=== PATIENT | female | born 1960 | race Caucasian/White ===

== ENCOUNTER 2023-06-28 10:32 | Emergency (ER) | payer MEDICARE, SELFPAY ==
--- NOTE | ~2023-06-28 | XR_ITS ---
EXAMINATION: XR chest 2V 06/28/2023 11:41 INDICATION: Cough PROCEDURE: 2 view chest COMPARISON: No prior studies for comparison. FINDINGS: The lungs are clear. The cardiomediastinal silhouette is within normal limits. There are no pleural effusions. There is no pneumothorax suspected. There are spinal stimulator leads overlyi ng the thoracic spine. There are mild wedge compression deformities of the lower thoracic spine and u pper lumbar spine, likely chronic. IMPRESSION: 1: NO ACUTE CARDIOPULMONARY DISEASE. Reviewed, dictated and finalized at location A. PLASTERER
--- NOTE | 2023-06-28 10:47 | ED.URI ---
HPI - URI/Sore Throat General Chief Complaint: Upper Respiratory Infection Stated Complaint: SINUS CONGESTION Time Seen by Provider: 06/28/23 10:34 Source: patient Mode of arrival: ambulatory Limitations: no limitations History of Present Illness HPI Narrative: Julianna is a 63-year-old female patient presenting to the clinic today with complaints of sinus congestion, cough, and increase in shortness of breath. She reports she wears home oxygen at all times. States that she is more short of breath upon exertion and has had a productive cough with yellow phlegm. Also reporting blowing out some yellow nasal discharge. History of pneumonia MD elicited complaint: sore throat and nasal congestion Related Data Home Medications Medication Instructions Recorded Confirmed albuterol sulfate 90 mcg/actuation inhalation 06/28/23 aerosol inhaler aspirin 81 mg tablet,delayed 81 mg PO DAILY 06/28/23 06/28/23 release (Adult Low Dose Aspirin) baclofen 10 mg tablet mg 06/28/23 budesonide 160 mcg-glycopyr 9 inh inhalation 06/28/23 mcg-formot 4.8 mcg/actuation HFA inhaler (Breztri Aerosphere) buspirone 15 mg tablet mg 06/28/23 celecoxib 200 mg capsule mg 06/28/23 chlorthalidone 25 mg tablet mg 06/28/23 cyanocobalamin (vitamin B-12) 1,000 mcg PO DAILY 06/28/23 06/28/23 1,000 mcg tablet (Vitamin B-12) hydrocodone 5 mg-acetaminophen 325 tablet 06/28/23 mg tablet lisinopril 20 mg tablet mg 06/28/23 morphine 15 mg tablet,extended mg PO 06/28/23 release morphine 30 mg tablet,extended mg PO 06/28/23 release multivit with minerals-iron 18 tablet PO 06/28/23 mg-folic ac 400 mcg-vit K 25 mcg tablet (Adults Multivitamin) olanzapine 5 mg tablet mg 06/28/23 rosuvastatin 40 mg tablet 40 mg PO DAILY 06/28/23 06/28/23 Allergies Allergy/AdvReac Type Severity Reaction Status Date / Time No Known Allergies Allergy Verified 06/28/23 11:11 Review of Systems Review of Systems: Pertinent positives per HPI. Patient denies any fever, chills, rash, headache, visual changes, dizziness, cough, shortness of breath, chest pain, palpitations, nausea, vomiting, diarrhea, constipation, abdominal pain, or any urinary issues. [facility] Comments At the time of my signature, I reviewed and agree with the nursing past medical, surgical, social, and family history. There is no relevant family history pertinent to the patient complaint. Exam Narrative: General: Well-developed, obese, chronically ill-appearing Head: Normocephalic, atraumatic Eyes: Pupils equally round and reactive to light bilaterally, EOM intact, sclera and conjunctive clear, no discharge, lids normal Ears: TMs intact and congested, ear canals clear, no drainage, grossly hearing normal. Nose: Nares patent, yellow nasal discharge, moderate inflammation, maxilla sinus tenderness. Mouth: Oral pharynx without lesions or masses, good dentition, MMM. Neck: Supple, trachea midline, no enlargement of anterior or posterior cervical nodes, no thyroid masses or goiter palpable. Cardio: Regular rate and rhythm, s1 and s2 normal, no murmur appreciated. Resp: Diminished breath sounds with crackles in the left lower base, no rhonchi, wheezing or rubs Course Course Emergency Course: Portions of this record may have been created with voice recognition software. Level of Care: Express Care Visit Vital Signs Vital signs: Vital signs reviewed MDM - URI/Sore Throat MDM Narrative Medical decision making narrative: At the time of visit patient is resting comfortably on the exam table. Patient appears to be nontoxic. Diagnostics: Chest x-ray was performed and was negative for any sign of pneumonia. Plan: supportive measures were discussed with the patient and they voiced understanding discharge instructions and agrees to treatment plan. Return precautions reviewed Differential Diagnosis Differential diagnosis: Likely upper respiratory infection, otitis med
[2023-06-28 11:14] VITALS: BP 147/66; PULSE 82; RESP 22; TEMP 37.2; O2SAT 93
== END 2023-06-28 12:11 | disposition home or self-care (01) ==
PROVIDERS: Emergency Provider Nurse Practitioner Family; PCP Internal Medicine Infectious Disease
DX: J01.90 Acute sinusitis, unspecified (principal); E78.00 Pure hypercholesterolemia, unspecified; I10 Essential (primary) hypertension; J44.9 Chronic obstructive pulmonary disease, unspecified; E11.9 Type 2 diabetes mellitus without complications; Z79.82 Long term (current) use of aspirin
CPT/HCPCS: 71046; 99213; G0463

== ENCOUNTER 2024-07-08 10:39 | Outpatient (CLI) | payer MEDICARE, SELFPAY ==
--- OUTSIDE RECORDS SUMMARY | 2024-07-08 11:38 | XMS_ITS | CONTINUITY OF CARE DOCUMENT ---
Author Name sourav benjamin Address Unknown Organization [facility] Address [address] [place] [address] Phone [phone] Care Team Providers Care Eyeglass Fitter Name Role Phone Nirmal NATHAN, Riri Unavailable TRICIA KURTZ MD Unavailable TRICIA KURTZ MD Unavailable [phone] PROBLEMS Condition Status Date Provider Notes Shortness of breath, nl rega stress 07/22 active Jordan Nacht Venous insufficiency active Jordan Nacht Obesity active Franco C Willam Hx of tobacco abuse (quit in 2013) active Franco C [place] COPD active Franco C Willam Hyperlipidemia active Franco C Willam HTN active Franco C [place] DM, type 2 active Franco C Willam Cardiology examination completed 8 - Jordan Sierra ENCOUNTERS Date Type Provider Location Encounter Diag nosis - In-person encounter Office Visit Riri Kinney MD [place] [facility] - In-person encounter Office Visit Riri Kinney MD [place] [facility] Cardiology examinationVenous insufficiencyShortness of breath, nl rega stress 07/22 - In-person encounter Office Visit Riri Kinney MD [place] [facility] DM, type 2HTNHyperlipidemiaCOPDHx of tobacco abuse (quit in 2013)ObesityVenous insufficiencyShortness of breath, nl rega stress 07/22 VITAL SIGNS Date Observation Value Provider Body Mass Index (Ratio) 39.28 kg/m2 Rickey Kinney MD blood pressure, diastolic 79 mm[Hg] Ca therine Bridger blood pressure, systolic 125 mm[Hg] Cat herine Gonzales pulse rate 102 /min Sandra Bridger oxygen saturation, oximetry 93 % Sandra Gonzales respiratory rate E&M 16 /min Catheri ne Bridger weight E&M 306 [lb_av] Sandra Gonzales blood pressure, cuff size regular Ca therine Gonzales height E&M 74 [in_i] Sandra Bridger Body Mass Index (Ratio) 40.70 kg/m2 Rickey Kinney MD pulse rate 104 /min Maria Isabel Campbel l oxygen saturation, oximetry 93 % Maria Isabel Alas blood pressure, cuff size regular Cy nthia Alas blood pressure, diastolic 86 mm[Hg] Ja cob Nacht blood pressure, systolic 140 mm[Hg] Onofre ob Nacht respiratory rate E&M 18 /min Maria Isabel Alas weight E&M 317 [lb_av] Maria Isabel [place] l height E&M 74 [in_i] Maria Isabel [place] l Body Mass Index (Ratio) 39.54 kg/m2 Rickey Kinney MD blood pressure, resting Yes Brit rob Block pulse rate 106 /min Deirdre Block blood pressure, diastolic 98 mm[Hg] Br ittany Block blood pressure, systolic 158 mm[Hg] Lashay ttany Block oxygen saturation, oximetry 93 % Deirdre Block height E&M 74 [in_i] Deirdre Block weight E&M 308 [lb_av] Deirdre Kaur respiratory rate E&M 16 /min Ya Kaur ALLERGIES No Known Drug Allergies HISTORY OF MEDICATION USE Medication Status Instructions Dates Provider Indications Com ments chlorthalidone 25 mg tablet active TAKE 1 TABLET BY MOUTH EVERY DAY ret chlorthalidone 25 mg tablet completed Take 1 tablet by mouth once a day - Fitz MEDICAL COMPRESSION STOCKINGS active knee high, bilateral, with 20-30mmHg of compression Jordan Sierra chlorthalidone 25 mg tablet completed 1 tablet once a day - Jordan Sierra magnesium oxide 400 mg magnesium tablet active 1 tablet as needed Christine Samuel One-A-Day Women's 50 Plus 400-20 mcg tablet active Christine Samuel Adult Aspirin Regimen 81 mg tablet,delayed release (DR/EC) active 1 tablet once a day Christine Samuel Ventolin HFA 90 mcg/actuation HFA aerosol inhaler active 4-6 puff once a day Christine Samuel #90, 84 days supply, Filled 01/02/2020 Symbicort 160-4.5 mcg/actuation HFA aerosol inhaler active Inhale 2 puff by mouth twice a day as directed Christine Samuel #10.2, 30 days supply, Prescribed by TRICIA KURTZ, Filled 07/03/2020 Spiriva Respimat 2.5 mcg/actuation mist active Inhale 2 puff by mouth once a day Christine Samuel #4, 30 days supply, Prescribed by TRICIA KURTZ, Filled 06/16/2020 rosuvastatin 40 mg tablet active 1 tablet once a day Christine Samuel #90, 90 days supply, Filled 06/26/2020 Oysco 500/D 500 mg-5 mcg (200 unit) tablet active Take 1 tablet by mouth twice a day Christine Samuel #60, 30 days supply, Prescribed by FRANCO KLEIN, Filled 06/13/2019 olanzapine 5 mg tablet active 1 tablet once a day Christine Samuel #90, 90 days supply, Filled 06/05/2020 morphine 30 mg tablet extended release active 1 tablet twice a day Christine Samuel #60, 30 days supply, Filled 06/17/2020 lisinopril 20 mg tablet active 1 tablet once a day Christine Samuel #90, 90 days supply, Filled 06/26/2020 hydrocodone-aceta minophen 10-325 mg tablet active Take 1 tablet by mouth three times a day as needed Christine Samuel #90, 30 days supply, Prescribed by RIC PUGH, Filled 06/18/2020 celecoxib 200 mg capsule active 1 tablet twice a day Christine Samuel #180, 90 days supply, Filled 05/23/2020 albuterol sulfate 90 mcg/actuation HFA aerosol inhaler active Inhale 2 puff by mouth every four to six hours as needed Christine Samuel #90, 83 days supply, Prescribed by TRICIA KURTZ, Filled 06/05/2020 SOCIAL HISTORY Date Observation Value Provider smoking, year quit 2013 Sandra Gonzales cigarette use yes Sandra Bridger smoking status Former smoker Sandra Ot is social history reviewed E&M revi ewed - no changes required Riri Kinney MD social history E&M S moking History: Anel painting is a former smoker. Jordan Sierra social history reviewed E&M revi ewed - no changes required Jordan Sierra smoking, year quit 2013 Maria Isabel hills cigarette use yes Maria Isabel rivera smoking status Former smoker Maria Isabel fink number of grandchildren Riri Kinney MD M isabela Quarles social history E&M S moking History: Anel painting is a former smoker. Franco Quarles social history reviewed E&M revi ewed - no changes required Franco Quarles alcohol use, average drinks per day <1 Deirdre Block alcohol use yes Deirdre Block smoking, year quit 2013 Deirdre Block cigarette use yes Deirdre Block smoking status Former smoker Deirdre brown FAMILY HISTORY Family Member Condition Mother Family History Unkno wn Father Family History of Co ronary Artery Disease: INSURANCE PROVIDERS Payer name Policy type / Coverage type [place] [employer] party ID AARP MEDICARE ADVANTAGE ([employer] P[employer]) Other [id number] ADVANCE DIRECTIVES Name Date DISCUSSED - NO DECISION MADE TREATMENT PLAN Date Name Performer [id number],S, Riri Kinney MD [id number],S, Riri Kinney MD [id number],B, Riri Kinney MD [id number],S, Riri Kinney MD [id number],W, Riri Kinney MD [id number],W, Riri Kinney MD Cardiology Riri Kinney MD Cardiology Riri Kinney MD Cardiology Riri Kinney MD Cardiology Riri Kinney MD Cardiology Riri Kinney MD Cardiology Riri Kinney MD Cardiology follow up Riri toth MD Cardiology follow up Jordan Sierra Cardiology follow up Jordan Sierra Cardiology follow up Jordan Sierra Cardiology follow up Jordan Sierra Cardiology follow up Jordan Sierra Cardiology Franco C [place] Cardiology Franco C [place] Cardiology Franco C Willam Cardiology Franco C Willam Cardiology Franco C [place] Cardiology Franco C [place] Date Name Venous Doppler Bilat eral LE - Reflux Stress Regadenoson Complete Echo HISTORY OF PROCEDURES Procedure Date Procedure Name Provider Procedure Notes S tatus EKG Riri Kinney MD completed
--- OUTSIDE RECORDS SUMMARY | 2024-07-08 11:38 | XMS_ITS | Data Portability ---
Author Organization [place] - [email or web address], Main Office Address [address] [place] [address] Care Team Providers Care Assembler Body Name Role Phone AARONMAK ISABELRafael Primary Care Provider Assessment Encounter Date Assessment Date Assessment LastModified by Organization Details LastModified Time 01/28/2023 01/28/2023 Assessment: Nicotine smoke: 2 ppd [id number] = 80 pack years Severe COPD Severe persistent asthma Pulm hypertension CSA from hydrocodone and morphine Severe OSAHS, AHI = 33 Plan: The following were reviewed and explained to the patient: Lab data 10/09/[address] 12/27/19 emphysema, pulm hypertension Chest CT 07/04/22 left lung and RLL pneumonia, hiatal hernia, cardiomegaly PFT 06/10/17 FEV1 1.12 L (34%), (+) BD response PFT 09/12/20 FEV1 1.25 L (38%), (+) BD response PFT 10/31/21 FEV1 1.13 L (37%) PFT 10/30/22 FEV1 0.91 L (28%) [facility] split sleep study 10/03/22 AHI = 33, REM AHI = 70, ResMed medium AirFit F30 full face mask @ 11-13 cmH2O + 4 Lpm O2 bleed in The [place] Preventive Services Task Force (USPSTF) recommends annual screening for lung cancer with low-dose computed tomography (LDCT) in: 1. adults aged 50 to 80 years who have a 20 pack-year smoking history and 2. current smokers or smokers who have quit within the past 15 years. Screening should be discontinued once a person has not smoked for 15 years or develops a health problem that substantially limits life expectancy or the ability or willingness to have curative lung surgery. LDCT one week before return. Advised to continue not to smoke. She is on nicotine replacement therapy and is down from 40 to 10 gums per day. In the future, we may consider biologics if her asthmatic component remains uncontrolled as her eosinophils from 10/09/20 = 190/uL. Continue Ventolin HFA as needed. Continue Breztri 160/9/4.8 mcg 2 puffs BID per patient request. Gargle after use. She is could not get into the [employer] patient assistance program. The patient does not know how to accurately administer the inhalers. Today, the patient was shown how to take these medications. The proper technique for delivering these medications was instructed. The patient expressed a clear understanding and demonstrated back how to use these medications. Without the proper technique, the patient will not reap the benefits of these medications as the contents will not reach the lower airways as intended to be. Pulmonary rehabilitation may be included in the management of patients with chronic obstructive pulmonary disease (COPD). For respiratory diseases different from COPD, there have been no formal statements regarding patient selection. Pulmonary rehabilitation consists of assessment, exercise, education, and emotional support. It covers the goals of rehabilitation, the techniques of breathing, the necessity of nicotine cessation, the strategies to deal with panic attacks, the rationale of pulmonary medications, and the importance of nutrition. As the patient learns to live with her pulmonary condition through exercise and education, the patient will regain confidence with her abilities and feel improvement in her overall quality of life. The patient's FEV1 is 28 %. The patient is enrolled in pulmonary rehabilitation but declined participation. General concepts of pulmonary rehabilitation were explained. Adherence to therapy is advocated. Nonadherence may lead to treatment failure, further progression of the condition, and other complications. Hospitals admissions are often the result of individuals not taking prescription medications accurately. Alternatively, greater adherence to medication regimens have shown to lower rates of hospitalization and decrease total medical costs in patients with chronic medical conditions. PAP compliance downloaded and interpreted x 20 minutes. Data reviewed and explained to the patient. Average apnea/hypopnea index (AHI) is 2.7. Patient used PAP > 4 hours 99% of the time. PAP is set at 11-13 cmH2O. PAP will be reset at 12-13 cmH2O. Oxygen supplementation: 4 Lpm Patient is benefiting from PAP therapy. Encouraged patient to maintain PAP use more than 70% of the time. Statement of PAP use and benefits will be sent to the home care store. Educated the patient on problems and solutions associated with positive airway pressure (PAP) use. Difficulty tolerating pressure, mask leaks, intolerance of interface, nasal congestion, claustrophobic response, dry mouth, and unintentional mask removal during sleep were covered. Provided the patient with a list of local home care stores where positive airway pressure (PAP) units, accoutrement, and services are available. Home care store selection is based on patient's insurance carrier. Patient will setup an appointment with [facility] for supplies and pressure adjustments. A major predictor of success with use of PAP is follow-up with both the respiratory supplier and the treating physician. The respiratory supplier optimally will follow-up within two weeks after starting use while the treating physician optimally will follow-up within 90 days after starting therapy to assess adherence and effectiveness of treatment. The download results can show the treating physician information about adherence to treatment, residual AHI while on treatment and presence of large mask leakage. This information is especially helpful if the patient has residual sleepiness despite treatment. General information on sleep disordered breathing, evaluation of sleep disordered breathing, treatment with PAP therapy, and living with PAP therapy were covered. We discussed with the patient the impact of weight on: Sleep disordered breathing Hypertension Cardiomegaly Hiatal hernia Low back pain OA We discussed with the patient the benefit of PAP therapy on: Sleep disordered breathing Pulmonary hypertension Hypertension Cardiomegaly Educated the patient on sleep hygiene measures. Relaxing rituals to rest easy, understanding foods with positive and negative impact on sleep, creating a peaceful sleep environment, timing of exercise, using herbal sleep aids, and practicing sleep-friendly meditation were covered. To determine how much sleep is needed, the patient will assess where she falls on the spectrum, examine what lifestyle factors such as work schedules and stress are affecting the quality and quantity of sleep. In general, adults need 7-9 hours of sleep. Educated the patient regarding foods that promote sleep. These include but are not limited to cherries, bananas, toast, oatmeal, and warm milk. Educated the patient regarding foods and drinks to avoid before bedtime. These include but are not limited to aged cheese, chocolate, spicy foods, tomato-based sauces, soy, ginseng tea and processed meat. Advocated influenza vaccination annually and pneumonia vaccination in 2023. Advocated weight loss through diet and exercise. Patient's ideal body weight according to height and gender is up to 185 lbs. Encouraged patient to adjust caloric intake to maintain/achieve ideal body weight, emphasizing on fruits, vegetables, whole grains, and fat-free or low-fat products. These include lean meats, poultry, fish, beans, eggs, and nuts and foods that are low in saturated fats, trans-fats, cholesterol, salt (sodium), and glycemic index. Stressed the importance of regular exercise up to the patient's capacity limits. In this case, we recommend regular (4 x a week or more) walking or other light activity. Patient to monitor BP daily and bring records to PCP for further management. Follow-up: 9 months, October 2023 Not available 01/28/2023 12:00:35 04/20/2023 04/20/2023 Assessment: Nicotine smoke: 2 ppd [id number] = 80 pack years Severe COPD Severe persistent asthma Pulm hypertension CSA from hydrocodone and morphine Severe OSAHS, AHI = 33 Plan: The following were reviewed and explained to the patient: Lab data 10/09/[address] 12/27/19 emphysema, pulm hypertension Chest CT 07/04/22 left lung and RLL pneumonia, hiatal hernia, cardiomegaly PFT 06/10/17 FEV1 1.12 L (34%), (+) BD response PFT 09/12/20 FEV1 1.25 L (38%), (+) BD response PFT 10/31/21 FEV1 1.13 L (37%) PFT 10/30/22 FEV1 0.91 L (28%) [facility] split sleep study 10/03/22 AHI = 33, REM AHI = 70, ResMed medium AirFit F30 full face mask @ 11-13 cmH2O + 4 Lpm O2 bleed in The [place] Preventive Services Task Force (USPSTF) recommends annual screening for lung cancer with low-dose computed tomography (LDCT) in: 1. adults aged 50 to 80 years who have a 20 pack-year smoking history and 2. current smokers or smokers who have quit within the past 15 years. Screening should be discontinued once a person has not smoked for 15 years or develops a health problem that substantially limits life expectancy or the ability or willingness to have curative lung surgery. LDCT and PFT one week before return. Advised to continue not to smoke. She is on nicotine replacement therapy and is down from 40 to 10 gums per day. Sputum gm stain and culture if purulent. Continue Ventolin HFA as needed. Continue Breztri 160/9/4.8 mcg 2 puffs BID per patient request. Gargle after use. She is out of Breztri and is in the donut hole. She will enroll in the [place] patient assistance program. The patient does not know how to accurately administer the inhalers. Today, the patient was shown how to take these medications. The proper technique for delivering these medications was instructed. The patient expressed a clear understanding and demonstrated back how to use these medications. Without the proper technique, the patient will not reap the benefits of these medications as the contents will not reach the lower airways as intended to be. Pulmonary rehabilitation may be included in the management of patients with chronic obstructive pulmonary disease (COPD). For respiratory diseases different from COPD, there have been no formal statements regarding patient selection. Pulmonary rehabilitation consists of assessment, exercise, education, and emotional support. It covers the goals of rehabilitation, the techniques of breathing, the necessity of nicotine cessation, the strategies to deal with panic attacks, the rationale of pulmonary medications, and the importance of nutrition. As the patient learns to live with her pulmonary condition through exercise and education, the patient will regain confidence with her abilities and feel improvement in her overall quality of life. The patient's FEV1 is 28 %. The patient is enrolled in pulmonary rehabilitation but declined participation. General concepts of pulmonary rehabilitation were explained. Adherence to therapy is advocated. Nonadherence may lead to treatment failure, further progression of the condition, and other complications. Hospitals admissions are often the result of individuals not taking prescription medications accurately. Alternatively, greater adherence to medication regimens have shown to lower rates of hospitalization and decrease total medical costs in patients with chronic medical conditions. PAP compliance downloaded and interpreted x 20 minutes. Data reviewed and explained to the patient. Average apnea/hypopnea index (AHI) is 1.3. Patient used PAP > 4 hours 96% of the time. PAP is set at 12-13 cmH2O. PAP will be reset at 12-13 cmH2O. Oxygen supplementation: 4 Lpm Patient is benefiting from PAP therapy. Encouraged patient to maintain PAP use more than 70% of the time. Statement of PAP use and benefits will be sent to the home care store. Educated the patient on problems and solutions associated with positive airway pressure (PAP) use. Difficulty tolerating pressure, mask leaks, intolerance of interface, nasal congestion, claustrophobic response, dry mouth, and unintentional mask removal during sleep were covered. Provided the patient with a list of local home care stores where positive airway pressure (PAP) units, accoutrement, and services are available. Home care store selection is based on patient's insurance carrier. Patient will setup an appointment with [facility] for supplies and pressure adjustments. A major predictor of success with use of PAP is follow-up with both the respiratory supplier and the treating physician. The respiratory supplier optimally will follow-up within two weeks after starting use while the treating physician optimally will follow-up within 90 days after starting therapy to assess adherence and effectiveness of treatment. The download results can show the treating physician information about adherence to treatment, residual AHI while on treatment and presence of large mask leakage. This information is especially helpful if the patient has residual sleepiness despite treatment. General information on sleep disordered breathing, evaluation of sleep disordered breathing, treatment with PAP therapy, and living with PAP therapy were covered. We discussed with the patient the impact of weight on: Sleep disordered breathing Hypertension Cardiomegaly Hiatal hernia Low back pain OA We discussed with the patient the benefit of PAP therapy on: Sleep disordered breathing Pulmonary hypertension Hypertension Cardiomegaly Educated the patient on sleep hygiene measures. Relaxing rituals to rest easy, understanding foods with positive and negative impact on sleep, creating a peaceful sleep environment, timing of exercise, using herbal sleep aids, and practicing sleep-friendly meditation were covered. To determine how much sleep is needed, the patient will assess where she falls on the spectrum, examine what lifestyle factors such as work schedules and stress are affecting the quality and quantity of sleep. In general, adults need 7-9 hours of sleep. Educated the patient regarding foods that promote sleep. These include but are not limited to cherries, bananas, toast, oatmeal, and warm milk. Educated the patient regarding foods and drinks to avoid before bedtime. These include but are not limited to aged cheese, chocolate, spicy foods, tomato-based sauces, soy, ginseng tea and processed meat. Advocated influenza vaccination annually and pneumonia vaccination in 2023. Advocated weight loss through diet and exercise. Patient's ideal body weight according to height and gender is up to 185 lbs. Encouraged patient to adjust caloric intake to maintain/achieve ideal body weight, emphasizing on fruits, vegetables, whole grains, and fat-free or low-fat products. These include lean meats, poultry, fish, beans, eggs, and nuts and foods that are low in saturated fats, trans-fats, cholesterol, salt (sodium), and glycemic index. Stressed the importance of regular exercise up to the patient's capacity limits. In this case, we recommend regular (4 x a week or more) walking or other light activity. Patient to monitor BP daily and bring records to PCP for further management. Follow-up: 3 months, July 2023 Not available 07/07/2023 18:14:14 07/15/2023 07/15/2023 Assessment: Nicotine smoke: 2 ppd [id number] = 80 pack years Severe COPD Severe persistent asthma Pulm hypertension CSA from hydrocodone and morphine Severe OSAHS, AHI = 33 Plan: The following were reviewed and explained to the patient: Lab data 10/09/[address] 12/27/19 emphysema, pulm hypertension Chest CT 07/04/22 left lung and RLL pneumonia, hiatal hernia, cardiomegaly Chest CT 07/07/23 emphysema, no nodule PFT 06/10/17 FEV1 1.12 L (34%), (+) BD response PFT 09/12/20 FEV1 1.25 L (38%), (+) BD response PFT 10/31/21 FEV1 1.13 L (37%) PFT 10/30/22 FEV1 0.91 L (28%) PFT 07/07/23 FEV1 1.31 L (45%) [facility] split sleep study 10/03/22 AHI = 33, REM AHI = 70, ResMed medium AirFit F30 full face mask @ 11-13 cmH2O + 4 Lpm O2 bleed in The [employer] recommends annual screening for lung cancer with low-dose computed tomography (LDCT) for people aged 50 to 80 years old who smoke or formerly smoked and have a 20-year or greater pack-year history. Screening is no longer discontinued even when a person has not smoked for 15 years. Advised to continue not to smoke. She is on nicotine replacement therapy, 15 gums per day, the most. Sputum gm stain and culture if purulent. Continue Ventolin HFA as needed. Continue Breztri 160/9/4.8 mcg 2 puffs BID. Gargle after use. The patient does not know how to accurately administer the inhalers. Today, the patient was shown how to take these medications. The proper technique for delivering these medications was instructed. The patient expressed a clear understanding and demonstrated back how to use these medications. Without the proper technique, the patient will not reap the benefits of these medications as the contents will not reach the lower airways as intended to be. Pulmonary rehabilitation may be included in the management of patients with chronic obstructive pulmonary disease (COPD). For respiratory diseases different from COPD, there have been no formal statements regarding patient selection. Pulmonary rehabilitation consists of assessment, exercise, education, and emotional support. It covers the goals of rehabilitation, the techniques of breathing, the necessity of nicotine cessation, the strategies to deal with panic attacks, the rationale of pulmonary medications, and the importance of nutrition. As the patient learns to live with her pulmonary condition through exercise and education, the patient will regain confidence with her abilities and feel improvement in her overall quality of life. The patient's FEV1 is 45%. The patient is enrolled in pulmonary rehabilitation but declined participation. General concepts of pulmonary rehabilitation were explained. Adherence to therapy is advocated. Nonadherence may lead to treatment failure, further progression of the condition, and other complications. Hospitals admissions are often the result of individuals not taking prescription medications accurately. Alternatively, greater adherence to medication regimens have shown to lower rates of hospitalization and decrease total medical costs in patients with chronic medical conditions. PAP compliance downloaded and interpreted x 20 minutes. Data reviewed and explained to the patient. Average apnea/hypopnea index (AHI) is 1.1. Patient used PAP > 4 hours 94% of the time. PAP is set at 12-13 cmH2O. PAP will be reset at 12-13 cmH2O. Oxygen supplementation: 4 Lpm Patient is benefiting from PAP therapy. Encouraged patient to maintain PAP use more than 70% of the time. Statement of PAP use and benefits will be sent to the home care store. Educated the patient on problems and solutions associated with positive airway pressure (PAP) use. Difficulty tolerating pressure, mask leaks, intolerance of interface, nasal congestion, claustrophobic response, dry mouth, and unintentional mask removal during sleep were covered. Provided the patient with a list of local home care stores where positive airway pressure (PAP) units, accoutrement, and services are available. Home care store selection is based on patient's insurance carrier. Patient will setup an appointment with [facility] for supplies and pressure adjustments. A major predictor of success with use of PAP is follow-up with both the respiratory supplier and the treating physician. The download results can show the treating physician information about adherence to treatment, residual AHI while on treatment and presence of large mask leakage. This information is especially helpful if the patient has residual sleepiness despite treatment. General information on sleep disordered breathing, evaluation of sleep disordered breathing, treatment with PAP therapy, and living with PAP therapy were covered. We discussed with the patient the impact of weight on: Sleep disordered breathing Hypertension Cardiomegaly Hiatal hernia Low back pain OA We discussed with the patient the benefit of PAP therapy on: Sleep disordered breathing Pulmonary hypertension Hypertension Cardiomegaly Educated the patient on sleep hygiene measures. Relaxing rituals to rest easy, understanding foods with positive and negative impact on sleep, creating a peaceful sleep environment, timing of exercise, using herbal sleep aids, and practicing sleep-friendly meditation were covered. To determine how much sleep is needed, the patient will assess where she falls on the spectrum, examine what lifestyle factors such as work schedules and stress are affecting the quality and quantity of sleep. In general, adults need 7-9 hours of sleep. Educated the patient regarding foods that promote sleep. These include but are not limited to cherries, bananas, toast, oatmeal, and warm milk. Educated the patient regarding foods and drinks to avoid before bedtime. These include but are not limited to aged cheese, chocolate, spicy foods, tomato-based sauces, soy, ginseng tea and processed meat. Advocated influenza vaccination annually and pneumonia vaccination in 2023. Advocated weight loss through diet and exercise. Patient's ideal body weight according to height and gender is up to 185 lbs. Encouraged patient to adjust caloric intake to maintain/achieve ideal body weight, emphasizing on fruits, vegetables, whole grains, and fat-free or low-fat products. These include lean meats, poultry, fish, beans, eggs, and nuts and foods that are low in saturated fats, trans-fats, cholesterol, salt (sodium), and glycemic index. Stressed the importance of regular exercise up to the patient's capacity limits. In this case, we recommend regular (4 x a week or more) walking or other light activity. Patient to monitor BP daily and bring records to PCP for further management. Follow-up: 1 year, July 2024 [facility] Not available 07/15/2023 12:02:18 Plan of Treatment Reminders Order Date Submit Date Provider Last Modified By Organization Details Last Modified Time Details Appointments Follow Up 30 2024 11:00A Trista Garcia MD Not available Not available Not available Lab culture, sputum [email or web address] [place] [address] (Lab), [address] [place], [address], 09/10/2023 14:28:45 Referral None recorded. Procedures upper endoscopy procedure (EGD) (PROC) 2023 024 [facility] (Pre-Screen), [address] [place], [address], 08/13/2023 08:24:43 Surgeries None recorded. Imaging LDCT, chest, for lung cancer screening 2023 025 [facility] ([facility] Sched[facility]), [address] [place], [address], 06/27/2024 12:02:59 LDCT, chest, for lung cancer screening - Nicotine smoke: 2 ppd [id number] = 80 pack years 2022 024 [id number] [facility] ([facility] Sched[facility]), [address] [place], [address], 07/21/2023 11:38:53 LDCT, chest, for lung cancer screening - Nicotine smoke: 2 ppd 2323-5527 = 80 pack years 2022 024 [id number] [facility] ([facility] Sched[facility]), [address] [place], [address], 10/05/2023 09:06:35 Medication Orders Sutab 1.479-0.1 88-0.225 gram tablet 2023 024 [email or web address] 1 [id number], [address] [place], [place], [id number], 07/29/2023 14:14:59 Breztri Aerospher e 160 mcg-9mcg- 4.8mcg/ac tuation HFA aerosol inhaler 2023 024 [facility][id number], [address] [place], [place], [id number], 07/15/2023 12:06:05 albuterol sulfate HFA 90 mcg/actua tion aerosol inhaler 2023 024 [facility] #[id number], [address] [place], [place], [id number], 07/15/2023 12:06:06 albuterol sulfate HFA 90 mcg/actua tion aerosol inhaler 2022 023 [facility] #[id number], [address] [place], [place], [id number], 04/20/2023 09:30:38 Breztri Aerospher e 160 mcg-9mcg- 4.8mcg/ac tuation HFA aerosol inhaler 2022 023 [facility] #[id number], [address] [place], [place], [id number], 04/20/2023 09:30:37 albuterol sulfate HFA 90 mcg/actua tion aerosol inhaler 2022 023 [facility] #[id number], [address] [place], [place], [id number], 01/28/2023 11:55:56 Breztri Aerospher e 160 mcg-9mcg- 4.8mcg/ac tuation HFA aerosol inhaler 2022 023 [facility] #[id number], [address] [place], [place], [id number], 01/28/2023 11:55:55 Patient TargetsNo targets recorded. Patient Instructions Encounter Date Encounter Id Patient Instructions Last Modified By Organization Details Last Modified Time 01/28/2023 [id number] complete PFT w/ post bronchodilator spirometry* paul Not available 10/06/2023 08:55:19 04/20/2023 [id number] complete PFT w/ post bronchodilator spirometry* MIKIE Not available 07/08/2023 09:46:50 07/15/2023 [id number] complete PFT w/ post bronchodilator spirometry* Not available 06/29/2024 15:09:59 07/22/2023 [id number] PONCE TAB [email or web address] Not available 12:38:54 PT WITH MACROCYTOSIS NO AMEMIA. NOW ON VIT B12 REPLACEMENT WITH LOW HB . RECOMMEN EGD /COLON . . Risks benefits and complications were explained to the pt. ( BLEEDING PERFORATION , INFECTION , ). PT VERBALIZES UNDERSTANDING AND IS WILLING TO PROCEDE . [email or web address] Not available 07/22/2023 12:39:45 02/29/2024 [id number] we discussed substernal thyroidectomy and possible sternotomy. She is very much against the idea of surgery and possible ventilator requirement following surgery. She will continue to let us know how she is doing [email or web address] Not available 02/29/2024 11:15:52 Reason for Referral None Reported. Results Created Date Observation Date Name Description Value Unit Range Abnormal Flag Note LastModifiedBy Organization Detail LastModifiedTime 07/08/19 24 07/07/2023 compl ete PFT w/ post [facility] hodil ator enrique metry * No observ ation record ed. [facility] ([facility]) [address] [place], [address], 07/08/2023 09:46:50 07/14/1907/07/2023 LDCT, chest , for lung cance r scree digna No observ ation record ed. [facility] ([facility] Sched[facility]) [address] [place], [address], 07/14/2023 16:49:40 Result Notes None recorded. Problems Name Problem SNOMED Code Status Onset Date Resolution Date Notes Provider Name and Address Organization Details Recorded Time Pulmonary hypertension 63652536 Active 2020 Not Available [facility] 3 16:15:02 Obstructive sleep apnea syndrome 56526076 Active 2020 Not Available [facility] 3 16:15:02 Ex-smoker 3005631 Active 2022 Archie Garcia MD [address] [facility], [address], [address] , [employer] 3 11:53:59 Normocytic normochromic anemia 97666714 Active 2023 Danay Luna MD [address], [address] , [employer] 4 12:38:06 Substernal goiter 09808784 Active 2023 Adis Skinner MD [address] [facility], [place] [address], [place], [address] , [employer] 4 11:15:11 Chronic obstructive pulmonary disease 11673937 Active 2024 Jeaneth Sykes MA [facility], [employer] [facility] [email or web address] 5 15:14:53 Notes:Medical History: IgE 3 5 IU/mL Eosinophils 10/09/20 190/uL Bilateral thyroid nodules Alpha-1 antitrypsin PiMM 126 mg% Severe ACO, continuous O2 c/o IVRC, declined pulm rehab Obesity with severe OSAHS, AHI = 33, 10/03/22, on autoCPAP + 4 Lpm O2 c/o IVRC Pulmonary hypertension Hypertension Cardiomegaly Hiatal hernia Low back pain OA Problem Notes None recorded. Procedures Surgical History Date Name Laterality Status Provider Name and Address Organization Details Recorded Time Appendectomy completed Jeaneth Sykes MA [facility] [employer] [facility] [email or web address] 08/27/2022 11:36:12 Cataract Surgery completed Jeaneth phillips MA [facility] [employer] [facility] [employer] [facility] 08/27/2022 11:36:18 Cataract Surgery completed Jeaneth phillips MA [facility] [employer] [facility] [email or web address] 08/27/2022 11:36:20 Back Surgery completed Jeaneth Sykes MA [facility] 08/27/2022 11:36:28 Back Surgery completed Jeaneth Sykes MA [facility] 08/27/2022 11:36:29 Back Surgery completed Jeaneth Sykes MA [facility] 08/27/2022 11:36:30 Lung Surgery completed Jeaneth Sykes MA [facility] 08/27/2022 11:36:42 procedure on elbow completed Jeaneth Sykes MA [facility] 08/27/2022 11:36:49 Imaging Results Imaging Date Name Status LastModified by Organization Details LastModified Time 07/07/2023 complete PFT w/ post bronchodilator spirometry* completed [facility] ([facility]) [address] [place], [address], 07/08/2023 09:46:50 07/07/2023 LDCT, chest, for lung cancer screening completed [facility] ([facility]) [address] [place], [address], 07/14/2023 16:49:40 Procedure Notes None recorded. Medical Equipment None Reported. Allergies No known drug allergies Medications Name Sig Start Date Stop Date Status Note LastModified by Organization Details LastModified Time celecoxib 200 mg capsule TAKE 1 CAPSULE BY MOUTH TWICE DAILY NEEDED active Not Available Not Available No t Available furosemide 40 mg tablet TAKE 1 TABLET BY MOUTH EVERY DAY FOR 5 DAYS DIRECTED 08/27 completed Not Available Not Available Not Available prednisone 10 mg tablet START 04/04 TAKE 4 TABLETS DAILY FOR 3 DAYS 3 TABLETS DAILY FOR 2 DAYS 2 TABLETS DAILY FOR 1 DAYS 1 TABLET DAILY FOR 1 DAYS 04/20 completed Not Available Not Available Not Available azithromyci n 250 mg tablet TAKE 2 TABLETS BY MOUTH FOR 1 DAY THEN TAKE 1 TABLET BY MOUTH DAILY FOR 4 DAYS 04/20 completed Not Available Not Available Not Available ofloxacin 0.3 % eye drops 11/25 completed Not Available Not Available Not Available hydrocodone 5 mg-acetamin ophen 325 mg tablet TAKE 1 TABLET BY MOUTH THREE TIMES DAILY NEEDED active Not Available Not Available No t Available lisinopril 20 mg tablet TAKE 1 TABLET BY MOUTH EVERY DAY active Not Available Not Available No t Available prednisone 20 mg tablet TAKE 2 TABLETS BY MOUTH DAILY FOR 5 DAYS 07/06 completed Not Available Not Available Not Available olanzapine 5 mg tablet TAKE 1 TABLET BY MOUTH EVERY DAY BEFORE A MEAL active Not Available Not Available No t Available clindamycin HCl 150 mg capsule TAKE 3 CAPSULES BY MOUTH THREE TIMES DAILY 11/25 completed Not Available Not Available Not Available chlorthalid one 25 mg tablet TAKE 1 TABLET BY MOUTH EVERY DAY active Not Available Not Available No t Available morphine ER 30 mg tablet,exte nded release TAKE 1 TABLET BY MOUTH EVERY 12 HOURS active Not Available Not Available No t Available sulfamethox azole 800 mg-trimetho prim 160 mg tablet TAKE 1 TABLET BY MOUTH EVERY 12 HOURS FOR 3 DAYS DIRECTED 01/28 completed Not Available Not Available Not Available hydrocodone 10 mg-acetamin ophen 325 mg tablet TAKE 1 TABLET BY MOUTH THREE TIMES DAILY NEEDED 11/25 completed Not Available Not Available Not Available ketorolac 0.5 % eye drops 11/25 completed Not Available Not Available Not Available prednisolon e acetate 1 % eye drops,suspe nsion SHAKE LIQUID AND INSTILL 1 DROP TO SURGICAL EYE THREE TIMES DAILY STARTING AFTER SURGERY 11/25 completed Not Available Not Available Not Available baclofen 10 mg tablet TAKE 1 TABLET BY MOUTH THREE TIMES DAILY NEEDED active Not Available Not Available No t Available benzonatate 100 mg capsule TAKE ONE CAPSULE BY MOUTH THREE TIMES DAILY FOR 10 DAYS 07/06 completed Not Available Not Available Not Available pantoprazol e 40 mg tablet,charlie yed release 02/28 completed Not Available Not Available Not Available buspirone 10 mg tablet TAKE 1 TABLET BY MOUTH TWICE DAILY WITH MEALS 07/06 completed Not Available Not Available Not Available lisinopril 10 mg tablet 10/03 completed Not Available Not Available Not Available aspirin 81 mg chewable tablet Chew 1 tablet every day by oral route. active Not Available Not Available No t Available morphine 30 mg soluble tablet Take by oral route. 10/03 completed Not Available Not Available Not Available morphine ER 15 mg tablet,exte nded release TAKE 1 TABLET BY MOUTH EVERY MORNING active Not Available Not Available No t Available methylpredn isolone 4 mg tablets in a dose pack FOLLOW PACKAGE DIRECTION S 08/27 completed Not Available Not Available Not Available albuterol sulfate HFA 90 mcg/actuati on aerosol inhaler INHALE 1 PUFF BY MOUTH EVERY 4 HOURS NEEDED active Not Available Not Available No t Available loratadine 10 mg tablet TAKE 1 TABLET BY MOUTH EVERY DAY 07/14 completed Not Available Not Available Not Available amoxicillin 875 mg-potassiu m clavulanate 125 mg tablet TAKE 1 TABLET BY MOUTH EVERY 12 HOURS FOR 10 DAYS 07/06 completed Not Available Not Available Not Available buspirone 15 mg tablet TAKE 1 TABLET BY MOUTH TWICE DAILY WITH A MEAL active Not Available Not Available No t Available rosuvastati n 40 mg tablet TAKE 1 TABLET BY MOUTH AT BEDTIME active Not Available Not Available No t Available hydrocodone 10 mg-acetamin ophen 300 mg tablet Take 1 tablet every 6 hours by oral route. 10/03 completed Not Available Not Available Not Available aspirin 06/27 completed Not Available Not Available Not Available Oysco 500/D 10/03 completed Not Available Not Available Not Available multivitami n active Not Available Not Available Not Available Ventolin HFA 06/27 completed Not Available Not Available Not Available Vitamin B12 active Not Available Not A vailable Not Available Oysco 500/D 500 mg-5 mcg (200 unit) tablet TAKE 1 TABLET BY MOUTH TWICE DAILY 11/25 completed Not Available Not Available Not Available Symbicort 160 mcg-4.5 mcg/actuati on HFA aerosol inhaler INHALE 2 PUFFS BY MOUTH TWICE DAILY DIRECTED 07/04 completed Not Available Not Available Not Available B12 06/27 completed Not Available Not Available Not Available Super Thin Lancets 28 gauge USE TO TEST BLOOD SUGAR ONCE DAILY 10/03 completed Not Available Not Available Not Available True Metrix Glucose Test Strip USE TO TEST BLOOD SUGAR ONCE DAILY 10/03 completed Not Available Not Available Not Available Spiriva Respimat 2.5 mcg/actuati on solution for inhalation INHALE 2 PUFFS BY MOUTH ONCE EVERY DAY. 07/04 completed Not Available Not Available Not Available Incruse Ellipta 62.5 mcg/actuati on powder for inhalation INHALE 1 PUFF BY MOUTH EVERY DAY DIRECTED 06/27 completed Not Available Not Available Not Available True Metrix Air Glucose Meter USE TO TEST BLOOD SUGAR ONCE DAILY 10/03 completed Not Available Not Available Not Available naloxone 4 mg/actuatio n nasal spray CALL 911. SPR CONTENTS OF ONE SPRAYER (0.1ML) INTO ONE NOSTRIL. REPEAT IN 2-3 MIN IF SYMPTOMS OF OPIOID EMERGENCY PERSIST, ALTERNATE NOSTRILS active Not Available Not Available No t Available Xtampza ER 18 mg capsule sprinkle TAKE 1 CAPSULE BY MOUTH EVERY 12 HOURS 11/25 completed Not Available Not Available Not Available Breztri Aerosphere 160 mcg-9mcg-4. 8mcg/actuat ion HFA aerosol inhaler INHALE 2 PUFFS BY MOUTH TWICE DAILY active Not Available Not Available No t Available Sutab 1.479-0.188 -0.225 gram tablet DIRECTED active Not Available Not Available No t Available Ozempic 0.25 mg or 0.5 mg (2 mg/3 mL) subcutaneou s pen injector INJECT 0.25 MG SUBCUTANE OUSLY EVERY WEEK 04/20 completed Not Available Not Available Not Available Vitals Date Recorded Body height Body mass index (BMI) Body weight Body temperature Heart rate Systolic blood pressure Diastolic blood pressure Provider Name and Address Organization Details Last Updated DateTime 3 187.96 cm 40.4 kg/m2 247429. 6 g 97.6 [degF] 85 /min 130 mm[Hg] 70 mm[Hg] KARLIE Ramos [facility] [email or web address] 3 11:19:42 Date Recorded Oxygen saturation Oxygen saturation in Arterial blood by Pulse oximetry Oxygen saturation Oxygen saturation in Arterial blood by Pulse oximetry Respiratory rate Heart rate Provider Name and Address Organization Details Last Updated DateTime 3 89 % 89 % 89 % 89 % 14 /min 85 /min Archie Garcia MD [address] [facility], [facility] [address], [place], [address], [facility] [employer] [facility] [email or web address] 3 11:44:49 Date Recorded Body height Body mass index (BMI) Body weight Body temperature Heart rate Systolic blood pressure Diastolic blood pressure Provider Name and Address Organization Details Last Updated DateTime 3 187.96 cm 40.8 kg/m2 137895. 37 g 98.1 [degF] 83 /min 124 mm[Hg] 78 mm[Hg] Jeaneth Sykes MA [facility] [employer] [facility] [email or web address] 3 09:16:31 Date Recorded Oxygen saturation Oxygen saturation in Arterial blood by Pulse oximetry Heart rate Respiratory rate Provider Name and Address Organization Details Last Updated DateTime 04/20/2023 95 % 95 % 83 /min 15 /min Archie Garcia MD [address] [employer], [address], [place], [address], [facility] [employer] [facility] [email or web address] 3 09:22:37 Date Recorded Body height Body mass index (BMI) Body weight Body temperature Oxygen saturation Oxygen saturation in Arterial blood by Pulse oximetry Systolic blood pressure Diastolic blood pressure Provider Name and Address Organization Details Last Updated DateTime 4 187.96 cm 39 kg/m2 907908. 93 g 98.4 [degF] 94 % 94 % 140 mm[Hg] 70 mm[Hg] Lexie Sherman MA [facility] [employer] 4 11:25:49 Date Recorded Heart rate Heart rate Respiratory rate Provider Name and Address Organization Details Last Updated DateTime 07/15/2023 99 /min 99 /min 15 /min Archie Garcia MD [address] [employer] [facility] [employer], [address], [place], [address], [facility] [email or web address] 07/15/2023 12:29:16 Date Recorded Body height Body mass index (BMI) Body weight Heart rate Oxygen saturation Oxygen saturation in Arterial blood by Pulse oximetry Systolic blood pressure Diastolic blood pressure Provider Name and Address Organization Details Last Updated DateTime 4 187.96 cm 38.9 kg/m2 120677. 49 g 96 /min 96 % 96 % 138 mm[Hg] 68 mm[Hg] KARLIE Bryant [facility] [employer] 4 11:56:58 Date Recorded Body height Body mass index (BMI) Body weight Body temperature Provider Name and Address Organization Details Last Updated DateTime 02/29/2024 187.96 cm 39.8 kg/m2 884473.63 g 98.7 [degF] Iza Carrero RN [facility] [employer] [facility] [email or web address] 02/29/2024 10:56:01 Social History Question Answer Notes LastModified by Organization Details LastModified Time Tobacco Smoking Status Former Smoker quit 2013 just nicotine gum [employer], [employer] 10/30/2022 15:11:00 What Is Your Level Of Alcohol Consumption? Occasional [id number].[id number] [id number] Information not available 07/02/2022 What Is Your Level Of Caffeine Consumption? Occasional Information not available 08/27/2022 In The 14 Days Before Symptom Onset, Have You Had Close Contact With A Laboratory-conf irmed COVID-19 While That Case Was Ill? No MIGRATION.030 [id number] Information not available 07/02/2022 In The 14 Days Before Symptom Onset, Have You Had Close Contact With A Person Who Is Under Investigation For COVID-19 While That Person Was Ill? No MIGRATION.0301 [id number] Information not available 07/02/2022 What Type Of Diet Are You Following? REGULAR Information not available 08/27/2022 Do You Or Have You Ever Used E-cigarettes Or Vape? Never Used Electronic Cigarettes MIGRATION.0301 [id number] Information not available 07/02/2022 Do You Have An Electrostatic Air Filter? No MIGRATION.0301 [id number] Information not available 07/02/2022 Have You Been Exposed To Chemicals Or Toxins? Yes Has Had Chlorine Exposure Information not available 07/15/2023 When Did You Quit Smoking? 11-15yearssincelas tcigarette Information not available 07/15/2023 Are There Any Guns Present In Your Home? No MIGRATION.0301 [id number] Information not available 07/02/2022 Do You Have A Humidifier? No MIGRATION.0301 [id number] Information not available 07/02/2022 Where Do You Live? SingleLevelHouse Information not available 07/15/2023 Do You Have Moisture Problems In Your Home? No MIGRATION.0301 105161 Information not available 07/02/2022 What Was The Date Of Your Most Recent Tobacco Screening? 07/15/2023 Information not available 07/15/2023 Do You Have Any Pets? Yes MIGRATION.0301 [id number] Information not available 07/02/2022 Do You Use Your Seat Belt Or Car Seat Routinely? Yes MIGRATION.0301 [id number] Information not available 07/02/2022 Do You Have Smoke And Carbon Monoxide Detectors In Your Home? Yes MIGRATION.0301 [id number] Information not available 07/02/2022 At What Age Did You Start Smoking Tobacco? 13 MIGRATION.0301 600981 Information not available 07/02/2022 Are You Passively Exposed To Smoke? No MIGRATION.0301 292323 Information not available 07/02/2022 Do You Or Have You Ever Used Smokeless Tobacco? Never Used Smokeless Tobacco MIGRATION.030 [id number] Information not available 07/02/2022 How Much Tobacco Do You Smoke? 3+ PPD MIGRATION.030 332097 Information not available 07/02/2022 Do You Feel Stressed (tense, Restless, Nervous, Or Anxious, Or Unable To Sleep At Night)? [id number] Information not available 07/15/2023 Do You Use Any Illicit Or Recreational Drugs? No Information not available 08/27/2022 Do You Use Sunscreen Routinely? No MIGRATION.030 894421 Information not available 07/02/2022 Have You Recently Traveled Abroad? No Information not available 08/27/2022 Do You Have Any Dietary Restrictions? No Information not available 08/27/2022 Do You Or Have You Ever Used Any Other Forms Of Tobacco Or Nicotine? Yes Chew Nicotine Gum Information not available 07/15/2023 Sex: Unknown Functional Status Question Answer Note LastModified by Organization D etails LastModified Time What is your exercise level? None Information not available 08/27/2022 Mental Status None recorded. Family History Relationship Description Onset Age of this Age Resolved Age Notes LastModified by Organization Details LastModified Time Brother Obstructive sleep apnea syndrome [email or web address] Not available 2022 11:52:32 Notes:COUSIN HAD THYROID CAN CER Medical History No medical history recorded. Gynecological HistoryNo gynecological history recorded. Obstetrics History GPAL:G 0 P 0 0 0 0 Past Encounters Encounter ID Performer Location Encounter Start Date Encounter Closed Date Diagnosis/Indication Diagnosis SNOMED-CT Code Diagnosis ICD10 Code Diagnosis Note [id number] [facility] [address] [address] 09/11/2020 00:00:00 09/11/2020 12:25:31 [id number] [facility] [address] [address] 10/09/2020 00:00:00 10/09/2020 12:00:10 [id number] [facility] [address] [address] 05/27/2021 00:00:00 07/04/2021 09:06:11 [id number] [facility] [address] [address] 11/25/2021 00:00:00 11/25/2021 11:29:41 [id number] Archie Garcia MD [facility] [address] [address] 08/27/2022 10:46:45 08/28/2022 08:24:01 Severe chronic obstructive pulmonary disease 301136116 J44.9 Sleep apnea 65993986 G47 .30 G47.33 G47.31 G47.36 G47.61 [id number] Archie Garcia MD [facility] [address] [address] 10/30/2022 14:54:09 10/31/2022 07:44:32 Severe chronic obstructive pulmonary disease 431898366 J44.9 Obstructiv e sleep apnea syndrome 69483017 G47.33 [id number] Archie Garcia MD [facility] [address] [address] 01/28/2023 10:57:33 01/28/2023 12:04:22 Severe chronic obstructive pulmonary disease 851012278 J44.9 Obstructiv e sleep apnea syndrome 81196536 G47.33 Ex-smoker 7263960 Z87.89 1 F17.218 F17.218 [id number] Archie Garcia MD [address] [address] 04/20/2023 08:53:04 04/21/2023 08:31:01 Severe chronic obstructive pulmonary disease 047328229 J44.9 Obstructiv e sleep apnea syndrome 01379318 G47.33 Ex-smoker 9122853 Z87.89 1 F17.218 F17.056 [id number] Danay Luna MD [facility] [place] [place] General Surgery [address] [place] [address] 07/22/2023 11:51:09 07/22/2023 12:21:59 Normocytic normochromic anemia 15864554 D64.9 Screening for malignant neoplasm of colon 786576989 Z12.11 [id number] Archie Garcia MD [address] [address] 07/15/2023 11:04:07 07/16/2023 09:22:07 Chronic obstructive pulmonary disease 19780036 J44.9 Obstructiv e sleep apnea syndrome 96224065 G47.33 Ex-smoker 9464120 Z87.89 1 [id number] Adis Skinner MD [facility] [place] [place] [facility] [address] [place] [address] 02/29/2024 10:39:38 02/29/2024 11:38:09 Substernal goiter 27155284 E04.9 Health Concerns Section Related Observation LastModified by Organization Detai ls LastModified Time None Recorded Concern Status LastModified by Organization Details LastModified Time None Recorded Advance Directives Directive None Recorded Payers Encounter Date Sequence Insurance Name Policy Number Policy Vilchis Covered Member ID Vilchis Member ID Guarantor Name 01/28/2023 1 [facility] (MEDICARE REPLACEMENT/A DVANTAGE - PPO) [id number] Julianna Graves [id number] Julianna Graves 04/20/2023 1 [facility] (MEDICARE REPLACEMENT/A DVANTAGE - PPO) [id number] Julianna Graves [id number] Julianna Graves 07/15/2023 1 [facility] (MEDICARE REPLACEMENT/A DVANTAGE - PPO) [id number] Julianna Graves [id number] Julianna Graves 07/22/2023 1 [facility] (MEDICARE REPLACEMENT/A DVANTAGE - PPO) [id number] Julianna Graves [id number] Julianna Graves 02/29/2024 1 [facility] (MEDICARE REPLACEMENT/A DVANTAGE - PPO) [id number] Julianna Graves [id number] Julianna Graves Notes Date Note Type Note Provider Name and Address Organization Details Recorded Time 3 text/html Primary care/Referring provider: Luis Miguel Harper is here to go over her severe ACO management.Initial development of shortness of breath: 2018Duration of shortness of breath: 5 yearsCondition of shortness of breath: stableTiming of shortness of breath: noneFrequency: up to 9 times a dayLimits activities: yesAggravating factors: walking, pedalingAlleviating factors: rest Modified [employer] [place] (mMRC) Dyspnea Scale - Grade 2Grade 0 I only get breathless with strenuous exercise .Grade 1 I get short of breath when hurrying on the level or walking up a slight hill .Grade 2 I walk slower than people of the same age on the level because of breathlessness or have to stop for breath when walking at my own pace on the level .Grade 3 I stop for breath after walking about 100 yards or after a few minutes on the level .Grade 4 I am too breathless to leave the house or I am breathless when dressing .Treatment history:Ventolin HFA since 10/2019[employer] Ellipta 10/2019 - piriva Respimat since ymbicort 160/4.5 mcg since 07/2020Other symptoms:Productive cough: noWheezing: noChest tightness: noOrthopnea: 15 degree angle hospital bed due to back painFrequent throat clearing or swallowing: noPalpitations: noHeartburn: noEdema: noEnvironmental exposures:Nicotine smoke: 2 ppd 3534-9138 = 80 pack yearsPaint: noDye: noDust mites: yesMold: noDamp basement: noWood burning stove: noAnimal dander: yes 1 catCockroaches: noPollen: yesArsenic: noAsbestos: yes Beryllium: noCadmium: noChromium: noCoal smoke: noDiesel fumes: noNickel: noSilica: noSoot: noDuring the [facility] split sleep study on 10/03/22, AHI = 33, REM AHI = 70. At home since 11/03/22, the patient uses a [employer] AirSense 11 autoset unit with heated humidification. The patient does not need the ramp to start low and go up slowly on the pressure. There is no xerostomia in a.m. There is no hose/mask condensation with water. The patient wears a [employer] small Kortney full face mask without chin strap. There is no claustrophobia, no nostril/nose bridge irritation, no facial rash, no facial numbness, no nosebleeding. The patient feels more refreshed upon waking and daytime alertness is improved. Energy levels are sustained for the remainder of the day. She sleeps from 10 pm to 5:30 am and wakes up without an alarm. Snoring: moderate, since .Snorting: noChoking: noCoughing: noGasping: noGagging: noSighing: noWitnessed apnea: yesTwitching or jerking of leg(s), arm(s), body, head: yesTeeth grinding: noTeeth clenching: noSleeptalking: noSleepwalking: noSleep crying: noBedwetting: noTongue/lip/gum/cheek biting: noSleeping with open mouth: yesSleep paralysis: noHypnagogic hallucinations: noHypnopompic hallucinations: noVivid dreams: yesDifficulty with sleep onset: noDifficulty with sleep maintenance: yesSleep interruptions: bodily aches, nocturia x 3Patient wakes up with: fatigue, mobility impairmentDaytime cataplexy: noMorning hypersomnolence: noAfternoon hypersomnolence: yesCaffeine sources in diet: coffee 3 cups per day Associated medical and psychiatric conditions:Congestive heart failure: noCoronary artery disease: noMyocardial infarction: noHypertension: yesStroke: noBronchial asthma: noChronic obstructive pulmonary disease: noDepression: noBipolar disorder: noAnxiety: noPanic disorder: noPosttraumatic stress disorder: noAttention deficit and hyperactivity disorder: noObsessive Compulsive disorder: noSchizophrenia: noSchizoaffective disorder: noPersonality disorder: noChronic analgesic use: hydrocodone and morphineChronic sedative/hypnotic use: no EPWORTH SLEEPINESS SCALE (ESS) CHANCE OF DOZING SCORE0 = would never doze1 = slight chance of dozing2 = moderate chance of dozing3 = high chance of dozing SITUATION AND CHANCE OF DOZINGSitting and reading - 0Watching television - 0Sitting inactive in a public place (e.g. a theater or meeting) - 0As a passenger in a car for an hour without a break - 0Lying down to rest in the afternoon when circumstances permit - 1Sitting and talking to someone - 0Sitting quietly after lunch without alcohol - 0In a car, while stopped for a few minutes in the traffic - 0TOTAL SCORE 1Subjectively, patient has a slight chance of dozing. Archie Garcia MD [address] [place] [address], [phone], [place] - [place] [employer] [facility] 01/28/2023 12:04:43 3 text/html Primary care/Referring provider: Katie Gómez MD CC: Patient went to Urgent Care for ACO exacerbation.Patient is here to go over her severe ACO management.Initial development of shortness of breath: 2018Duration of shortness of breath: 5 yearsCondition of shortness of breath: stableTiming of shortness of breath: noneFrequency: up to 8 times a dayLimits activities: yesAggravating factors: walking, pedalingAlleviating factors: rest Modified [employer] [place] (mMRC) Dyspnea Scale - Grade 2Grade 0 I only get breathless with strenuous exercise .Grade 1 I get short of breath when hurrying on the level or walking up a slight hill .Grade 2 I walk slower than people of the same age on the level because of breathlessness or have to stop for breath when walking at my own pace on the level .Grade 3 I stop for breath after walking about 100 yards or after a few minutes on the level .Grade 4 I am too breathless to leave the house or I am breathless when dressing .Treatment history:Ventolin HFA since 10/2019Incruse Ellipta 10/2019 - piriva Respimat since ymbicort 160/4.5 mcg since 07/2020 azithromycin 04/03/23 - 04/07/23benzonatate 04/16/23 -04/29/23prednisone 04/16/23 - 04/20/23Other symptoms:Productive cough: yellow sputumWheezing: noChest tightness: noOrthopnea: 15 degree angle hospital bed due to back painFrequent throat clearing or swallowing: noPalpitations: noHeartburn: noEdema: noEnvironmental exposures:Nicotine smoke: 2 ppd [id number] = 80 pack yearsPaint: noDye: noDust mites: yesMold: noDamp basement: noWood burning stove: noAnimal dander: yes 1 catCockroaches: noPollen: yesArsenic: noAsbestos: yes 1979-1989Beryllium: noCadmium: noChromium: noCoal smoke: noDiesel fumes: noNickel: noSilica: noSoot: noDuring the [facility] split sleep study on 10/03/22, AHI = 33, REM AHI = 70. At home since 01/28/23, the patient uses a [employer] AirSense 11 autoset unit with heated humidification. The patient does not need the ramp to start low and go up slowly on the pressure. There is no xerostomia in a.m. There is no hose/mask condensation with water. The patient wears a [employer] small Kortney full face mask without chin strap. There is no claustrophobia, no nostril/nose bridge irritation, no facial rash, no facial numbness, no nosebleeding. The patient feels more refreshed upon waking and daytime alertness is improved. Energy levels are sustained for the remainder of the day. She sleeps from 10 pm to 5:30 am and wakes up without an alarm. Snoring: moderate, since .Snorting: noChoking: noCoughing: noGasping: noGagging: noSighing: noWitnessed apnea: yesTwitching or jerking of leg(s), arm(s), body, head: yesTeeth grinding: noTeeth clenching: noSleeptalking: noSleepwalking: noSleep crying: noBedwetting: noTongue/lip/gum/cheek biting: noSleeping with open mouth: yesSleep paralysis: noHypnagogic hallucinations: noHypnopompic hallucinations: noVivid dreams: yesDifficulty with sleep onset: noDifficulty with sleep maintenance: yesSleep interruptions: bodily aches, nocturia x 3Patient wakes up with: fatigue, mobility impairmentDaytime cataplexy: noMorning hypersomnolence: noAfternoon hypersomnolence: yesCaffeine sources in diet: coffee 3 cups per day Associated medical and psychiatric conditions:Congestive heart failure: noCoronary artery disease: noMyocardial infarction: noHypertension: yesStroke: noBronchial asthma: noChronic obstructive pulmonary disease: noDepression: noBipolar disorder: noAnxiety: noPanic disorder: noPosttraumatic stress disorder: noAttention deficit and hyperactivity disorder: noObsessive Compulsive disorder: noSchizophrenia: noSchizoaffective disorder: noPersonality disorder: noChronic analgesic use: hydrocodone and morphineChronic sedative/hypnotic use: no EPWORTH SLEEPINESS SCALE (ESS) CHANCE OF DOZING SCORE0 = would never doze1 = slight chance of dozing2 = moderate chance of dozing3 = high chance of dozing SITUATION AND CHANCE OF DOZINGSitting and reading - 0Watching television - 0Sitting inactive in a public place (e.g. a theater or meeting) - 0As a passenger in a car for an hour without a break - 0Lying down to rest in the afternoon when circumstances permit - 1Sitting and talking to someone - 0Sitting quietly after lunch without alcohol - 0In a car, while stopped for a few minutes in the traffic - 0TOTAL SCORE 1Subjectively, patient has a slight chance of dozing. Archie Garcia MD [address] [place] [address], [phone], [facility] [employer] 07/07/2023 18:14:17 4 text/html Primary care/Referring provider: Katie Gómez, MDPatient is here to go over her severe ACO management.Initial development of shortness of breath: 2018Duration of shortness of breath: 6 yearsCondition of shortness of breath: stableTiming of shortness of breath: noneFrequency: up to 7 times a dayLimits activities: yesAggravating factors: walking, pedalingAlleviating factors: rest Modified [employer] [place] (mMRC) Dyspnea Scale - Grade 2Grade 0 I only get breathless with strenuous exercise .Grade 1 I get short of breath when hurrying on the level or walking up a slight hill .Grade 2 I walk slower than people of the same age on the level because of breathlessness or have to stop for breath when walking at my own pace on the level .Grade 3 I stop for breath after walking about 100 yards or after a few minutes on the level .Grade 4 I am too breathless to leave the house or I am breathless when dressing .Treatment history:Ventolin HFA since 10/2019Incruse Ellipta 10/2019 - piriva Respimat since ymbicort 160/4.5 mcg since 07/2020 azithromycin 04/03/23 - 04/07/23benzonatate 04/16/23 -04/29/23prednisone 04/16/23 - 04/20/23Other symptoms:Productive cough: yellow sputumWheezing: noChest tightness: noOrthopnea: 15 degree angle hospital bed due to back painFrequent throat clearing or swallowing: noPalpitations: noHeartburn: noEdema: noEnvironmental exposures:Nicotine smoke: 2 ppd [id number] = 80 pack yearsPaint: noDye: noDust mites: yesMold: noDamp basement: noWood burning stove: noAnimal dander: yes 1 catCockroaches: noPollen: yesArsenic: noAsbestos: yes 1979-1989Beryllium: noCadmium: noChromium: noCoal smoke: noDiesel fumes: noNickel: noSilica: noSoot: noDuring the [facility] split sleep study on 10/03/22, AHI = 33, REM AHI = 70. At home since 04/20/23, the patient uses a [employer] AirSense 11 autoset unit with heated humidification. The patient does not need the ramp to start low and go up slowly on the pressure. There is no xerostomia in a.m. There is no hose/mask condensation with water. The patient wears a [employer] small Kortney full face mask without chin strap. There is no claustrophobia, no nostril/nose bridge irritation, no facial rash, no facial numbness, no nosebleeding. The patient feels more refreshed upon waking and daytime alertness is improved. Energy levels are sustained for the remainder of the day. She sleeps from 10 pm to 5:30 am and wakes up without an alarm. Snoring: moderate, since 1980s.Snorting: noChoking: noCoughing: noGasping: noGagging: noSighing: noWitnessed apnea: yesTwitching or jerking of leg(s), arm(s), body, head: yesTeeth grinding: noTeeth clenching: noSleeptalking: noSleepwalking: noSleep crying: noBedwetting: noTongue/lip/gum/cheek biting: noSleeping with open mouth: yesSleep paralysis: noHypnagogic hallucinations: noHypnopompic hallucinations: noVivid dreams: yesDifficulty with sleep onset: noDifficulty with sleep maintenance: yesSleep interruptions: bodily aches, nocturia x 3Patient wakes up with: fatigue, mobility impairmentDaytime cataplexy: noMorning hypersomnolence: noAfternoon hypersomnolence: yesCaffeine sources in diet: coffee 3 cups per day Associated medical and psychiatric conditions:Congestive heart failure: noCoronary artery disease: noMyocardial infarction: noHypertension: yesStroke: noBronchial asthma: noChronic obstructive pulmonary disease: noDepression: noBipolar disorder: noAnxiety: noPanic disorder: noPosttraumatic stress disorder: noAttention deficit and hyperactivity disorder: noObsessive Compulsive disorder: noSchizophrenia: noSchizoaffective disorder: noPersonality disorder: noChronic analgesic use: hydrocodone and morphineChronic sedative/hypnotic use: no EPWORTH SLEEPINESS SCALE (ESS) CHANCE OF DOZING SCORE0 = would never doze1 = slight chance of dozing2 = moderate chance of dozing3 = high chance of dozing SITUATION AND CHANCE OF DOZINGSitting and reading - 0Watching television - 0Sitting inactive in a public place (e.g. a theater or meeting) - 0As a passenger in a car for an hour without a break - 0Lying down to rest in the afternoon when circumstances permit - 2Sitting and talking to someone - 0Sitting quietly after lunch without alcohol - 0In a car, while stopped for a few minutes in the traffic - 0TOTAL SCORE 2Subjectively, patient has a slight chance of dozing. Archie Garcia MD [address], [place] [address], [place], [address], [employer] 07/15/2023 12:30:08 4 text/html JULIANNA WAS SEEN IN THE OFFICE TODAY FOR JUSTIN. PT DENIES SOB/CP/PALPN/ TIREDNESS /FATIGUE / BLACK/ RED STOOL . PT WEAR HOME O2. WHEEL CHAIR BOUND. HB WAS 12 / MCV 102 IN 2021 , HB 9.8 / MCV 95 IN 2023. PT IS ON VIT B 12 REPLACEMENT . Danay Luna MD [address], [place] [address], [place], [address], [employer] 07/22/2023 12:40:20 4 text/html this patient has a substernal goiter and some dysphagia. She has not lost weight and reports that the symptoms have been worse in the past 8-9 months. She did have a biopsy 7 years ago which was benign. She is on supplemental oxygen Adis Skinner MD [address], [facility] [address], [place], [address], [employer] 02/29/2024 11:16:11 OBGyn Episode No OBEpisode recorded.
--- OUTSIDE RECORDS SUMMARY | 2024-07-08 11:38 | XMS_ITS | Clinical Summary ---
Author Organization [facility] Address [address] [place] [address] Phone Care Team Providers Care Special Procedures Technologist Name Role Phone Katie Gómez MD Primary Care Provider Active Problems Problem Noted Date Diagnosed Date Chronic pain syndrome 05/15/2017 Somatic symptom disorder, pe rsistent, severe, with predominant pain 05/15/2017 Social History Tobacco Use Types Packs/Day Years Used Date Smoking Tobacco: Never Assessed Comments Unknown Sex and Gender Information Value Date Recorded Sex Assigned at Not on file Legal Sex Female 10:21 PM CDT Gender Identity Not on file Sexual Orientation Not on file Plan of Treatment Health Maintenance Due Date Last Done Comments DEXA Bone Density 1959 Hepatitis C Virus (HCV) Screening 1959 TdaP Immunization 1959 Pap Smear 1980 Cervical Cancer Screening (CCS) 1989 HPV/Cotest 1989 Colonoscopy 2004 Colorectal Cancer Screening 2004 Cologuard 2009 Immunochemical Fecal Occult Blood 2009 Mammogram 2009 Pneumococcal Immunization (5 0+ years) (1 of 1 - PCV) 2009 Zoster Immunization (1 of 2) 2009 Influenza Immunization (#1) 2024 SARS-COV-2 Immunization ( - 2023-25 season) 2024 Respiratory Syncytial Virus (RSV) Immunization (Adult) (1 - 1-dose 75+ series) 2034 Hepatitis B Immunization Aged Out No longer eligible based on patient's age to complete this topic Meningococcal Immunization (ACWY) Aged Out No longer eligible based on patient's age to complete this topic Pneumococcal Immunization Combined Aged Out No longer eligible based on patient's age to complete this topic Rotavirus Immunization Aged Out No lo nger eligible based on patient's age to complete this topic Insurance MEDICARE [employer] Care Teams Special Procedures Technologist Relationship Specialty Start Date End Date Katie Gómez MD [address] [place] [phone] PCP - General Internal Medicine 05/11/17
--- NOTE | 2024-07-12 11:33 | WPDPFTINT ---
PFT Procedure Performed PFT Procedure Performed Spirometry with Pre/Post Bronchodilator Plethysmography (Lung Vol) Diffusing Cap (DLCO) Flow Vol Loop PFT Interpretation Lung volumes were measured with the body plethysmography method. The diminished expiratory reserve volume is due to obesity. The remaining lung volumes are unremarkable. Spirometry showed diminished expiratory flow rates and a diminished FEV1 to FVC ratio of 42% indicative of obstructive airway disease. Following administration of a bronchodilator there was no significant increase in expiratory flow rates. Lung diffusion capacity is moderately reduced at 55% predicted. This diminished lung diffusion capacity coupled with a low alveolar volume and a normal DLCO/VA ratio indicates a loss of alveolar capillary structure with loss of lung volume as seen in interstitial lung disease or emphysema. The flow-volume loop is consistent with emphysema. Impression: Severe obstructive airway disease with no response to bronchodilators on this testing. Moderately reduced lung diffusion capacity.
== END 2024-07-08 10:40 | disposition home or self-care (01) ==
PROVIDERS: PCP Internal Medicine Infectious Disease; Visit Provider Internal Medicine Pulmonary Disease
DX: J44.9 Chronic obstructive pulmonary disease, unspecified (principal)
CPT/HCPCS: 94060; 94726; 94729

== ENCOUNTER 2024-08-10 12:05 | Outpatient (CLI) | payer MEDICARE, SELFPAY ==
--- NOTE | ~2024-08-10 | XR_ITS ---
XR cervical spine 4-5V Ordering provider: Katie GómezNahomy History: . Neck pain NON INJ POST PORTION RECENT . Comparison: None. FINDINGS: VERTEBRAL BODIES: Anterolisthesis at the level of C3-C4 and C4-C5. Otherwise Normal height and alignm ent. No visible fracture or subluxation. The dens is intact. Degenerative changes of the spine. DISK SPACES: Narrowing of the disc C5-C6 and C6-C7. Multilevel facet joint disease. Multilevel uncove rtebral joint osteoarthritic changes. PARASPINOUS SOFT TISSUES: No prevertebral soft tissue swelling. Carotid calcification the right carot id artery. IMPRESSION: No acute osseous abnormality cervical spine. Minimal anterolisthesis at the level of C3-C4 and C4-C5. Multilevel degenerative disc disease. Reviewed, dictated and finalized at location A.
--- OUTSIDE RECORDS SUMMARY | 2024-08-10 13:32 | XMS_ITS | CONTINUITY OF CARE DOCUMENT ---
Author Name sourav benjamin Address Unknown Organization [facility] Address [address] [address] [place] [address] Phone [phone] Care Team Providers Care Toll Bridge Operator Name Role Phone Nirmal NATHAN, Riri Unavailable [phone] TRICIA KURTZ MD Unavailable TRICIA KURTZ MD Unavailable PROBLEMS Condition Status Date Provider Notes Shortness of breath, nl rega stress 07/22 active Jordan Nacht Venous insufficiency active Jordan Nacht Obesity active Franco C Willam Hx of tobacco abuse (quit in 2013) active Franco C Catlin COPD active Franco C Willam Hyperlipidemia active Franco C Willam HTN active Franco C Catlin DM, type 2 active Franco C Willam Cardiology examination completed 8 - Jordan Sierra ENCOUNTERS Date Type Provider Location Encounter Diag nosis - In-person encounter Office Visit Riri Kinney MD [facility] - In-person encounter Office Visit Riri Kinney MD [facility] Cardiology examinationVenous insufficiencyShortness of breath, nl rega stress 07/22 - In-person encounter Office Visit Riri Kinney MD [facility] DM, type 2HTNHyperlipidemiaCOPDHx of tobacco abuse (quit in 2013)ObesityVenous insufficiencyShortness of breath, nl rega stress 07/22 VITAL SIGNS Date Observation Value Provider Body Mass Index (Ratio) 39.28 kg/m2 Rickey Kinney MD blood pressure, diastolic 79 mm[Hg] Ca therine Bridger blood pressure, systolic 125 mm[Hg] Cat herine Stryker pulse rate 102 /min Sandra Bridger oxygen saturation, oximetry 93 % Sandra Stryker respiratory rate E&M 16 /min Catheri ne Bridger weight E&M 306 [lb_av] Sandra Stryker blood pressure, cuff size regular Ca therine Stryker height E&M 74 [in_i] Sandra Bridger Body [...] Value Provider smoking, year quit 2013 Sandra Stryker cigarette use yes Sandra Bridger smoking status [...] Payer name Policy type / Coverage type [place] [employer] party ID AARP MEDICARE ADVANTAGE ([facility] COMPLETE PPO) Other [id number] ADVANCE DIRECTIVES Name Date DISCUSSED - NO DECISION MADE TREATMENT PLAN Date Name Performer [id number],S, Riri Kinney MD [id number],S, Riri Kinney MD [id number],B, Riri Kinney MD [id number],S, Riri Kinney MD [id number],W, Riri Kinney MD [id number],W, Riri Kinney MD Cardiology Riri Kinney MD Cardiology Riri Kinney MD Cardiology Riri Kinney MD Cardiology Riri Kinney MD Cardiology Riri Kinney MD Cardiology Riri Kinney MD Cardiology follow up Riri toth MD Cardiology follow up Jordan Sierra Cardiology follow up Jordan Sierra Cardiology follow up Jordan Sierra Cardiology follow up Jordan Sierra Cardiology follow up [place] Sierra Cardiology Franco C Catlin Cardiology Franco C Catlin Cardiology Franco C Willam Cardiology Franco C Willam Cardiology Franco C Catlin Cardiology Franco C Catlin Date Name Venous Doppler Bilat eral LE - Reflux Stress Regadenoson Complete Echo HISTORY OF PROCEDURES Procedure Date Procedure Name Provider Procedure Notes S tatus EKG Riri Kinney MD completed
== END 2024-08-10 12:06 | disposition home or self-care (01) ==
PROVIDERS: PCP Internal Medicine Infectious Disease; Visit Provider Internal Medicine Infectious Disease
DX: M50.30 Other cervical disc degeneration, unspecified cervical region (principal)
CPT/HCPCS: 72050

== ENCOUNTER 2024-12-29 11:29 | Outpatient (CLI) | payer MEDICARE, SELFPAY ==
--- OUTSIDE RECORDS SUMMARY | 2024-12-29 10:30 | XMS_ITS | Encounter Summary ---
Author Organization [facility] [employer] [facility] Address [address] [place] [address] Care Team Providers Care Smt Technician Name Role Phone Unavailable Primary Care Provider Unavailabl e Reason for Visit * Reason Comments Establish Care Encounter Details Date Type Department Care Team ([facility] st Contact Info) Description 12/29/2024 10:30 AM CDT Office Visit [facility] Oncology and Hematology - [place] [address] [facility] [address] [place] [address] Reji Hendricks MD [address] [facility] [address] [place] [address] Chronic anemia (Primary Dx) Social History Tobacco Use Types Packs/Day Years Used Date Smoking Tobacco: Former Cigarettes Comments:Using nicorette gum . 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 Not on file Not on file documented as of this encounter Last Filed Vital Signs Vital Sign Reading Time Taken Comments Blood Pressure 142/78 12/29/2024 10:40 AM CDT Pulse 92 12/29/2024 10:40 AM CDT Temperature 36.2 C (97.1 F) 12/29/2024 10:40 AM CDT Respiratory Rate - - Oxygen Saturation 90% 12/29/2024 10:40 AM CDT Inhaled Oxygen Concentration - - Weight 137.9 kg (304 lb) 12/29/2024 10:40 AM CDT Height 188 cm (6' 2) 12/29/2024 10:40 AM CDT Body Mass Index 39.03 12/29/2024 10:40 AM CDT documented in this encounter Plan of Treatment Upcoming Encounters Date Type Department Care Team (Late st Contact Info) Description 01/19/2025 4:30 PM CDT Telephone Check Up [facility] Oncology and Hematology - [place] [address] [facility] [address] [place] [address] Reji Hendricks MD [address] [facility] [address] [place] [address] Scheduled Orders Name Type Priority Associated Diagnoses Orde r Schedule CBC WITH DIFFERENTIAL Lab Stat Chronic anemia Expected: 12/29/2024, Expires: 12/29/2025 COMPREHENSIVE METABOLIC PANEL Lab Stat Chronic anemia Expected: 12/29/2024, Expires: 12/29/2025 FERRITIN Lab Routine Chronic anemia Expected: 12/29/2024, Expires: 12/29/2025 IRON, TIBC, AND PERCENT SATURATION Lab Routine Chronic anemia Expected: 12/29/2024, Expires: 12/29/2025 METHYLMALONIC ACID Lab Routine Chronic anemia Expected: 12/29/2024, Expires: 12/29/2025 TRANSFERRIN RECEPTOR TFR SOLUBLE Lab Routine Chronic anemia Expected: 12/29/2024, Expires: 12/29/2025 VITAMIN B12 AND FOLATE Lab Routine Chronic anemia Expected: 12/29/2024, Expires: 12/29/2025 documented as of this encounter Visit Diagnoses Diagnosis Chronic anemia- Primary Anemia, unspecified documented in this encounter
--- OUTSIDE RECORDS SUMMARY | 2024-12-29 11:31 | XMS_ITS | Clinical Summary ---
Author Organization [facility] Address [address] [place] [address] Phone Care Team Providers Care Truck Engine Technician Name Role Phone Katie Gómez MD Primary [...] Health Maintenance Due Date Last Done Comments Hepatitis C Virus (HCV) Screening 1959 TdaP Immunization 1959 Pap Smear 1980 Cervical Cancer Screening (CCS) 1989 HPV/Cotest 1989 Cologuard 2004 Colonoscopy 2004 Colorectal Cancer Screening 2004 Immunochemical Fecal Occult Blood 2004 Pneumococcal Immunization (5 0+ years) (1 of 1 - PCV) 2009 Zoster Immunization (1 of 2) 2009 SARS-COV-2 Immunization (1 - 2023-25 season) 2024 Influenza Immunization (#1) 2025 Respiratory Syncytial Virus (RSV) Immunization (Adult) (1 - 1-dose 75+ series) 2034 Hepatitis B Immunization Aged Out No longer eligible based on patient's age to complete this topic Human Papillomavirus (HPV) Immunization Aged Out No longer eligible b ased on patient's age to complete this topic Meningococcal Immunization (ACWY) Aged Out No longer eligible based on patient's age to complete this topic Rotavirus Immunization Aged Out No lo nger eligible based on patient's age to complete this topic Insurance MEDICARE [facility] Care Teams Truck Engine Technician Relationship Specialty Start Date End Date Katie Gómez MD [address] [place] [id number] PCP - General Internal Medicine 05/11/17
[2024-12-29 11:55] LABS: Hematocrit 36.4 % (37.0-47.0); Hemoglobin 11.9 g/dL (12.0-15.0); Immature Granulocyte Percent A 0.3 % (0-0.5); Lymphocytes Absolute Auto 1.04 K/mm3 (0.9-3.2); Mean Corpuscular HGB Conc 32.7 g/dl (32-36); Mean Corpuscular Hemoglobin 30.9 pg (26-34); Mean Corpuscular Volume 94.5 fl (80-100); Nucleated Red Blood Cells Absolute Auto 0.000 K/mm3 (0.0-0.012); Nucleated Red Blood Cells Perc 0.0 % (0.0-0.2); Platelet Count Result 170 k/mm3 (150-375); Red Blood Count 3.85 M/mm3 (4.2-5.4); White Blood Count 6.6 K/mm3 (4.5-10.0)
[2024-12-29 12:30] LABS: Iron 104 ug/dL (37-170)
[2024-12-29 12:32] LABS: Alanine Aminotransferase 32 U/L (6-35); Albumin Level 4.6 g/dL (3.5-5.1); Alkaline Phosphatase 75 U/L (38-126); Anion Gap 8 mmol/L (4-12); Aspartate Amino Transferase 31 U/L (14-36); Bilirubin,Total 0.4 mg/dL (0.2-1.3); Blood Urea Nitrogen 22 mg/dL (7-17); Calcium 9.3 mg/dL (8.4-10.2); Carbon Dioxide 30 mmol/L (22-30); Chloride 96 mmol/L (98-107); Estimated Glomerular Filt Rate 54; Glucose 113 mg/dL (65-110); Potassium 4.8 mmol/L (3.4-5.0); Sodium 134 mmol/L (137-145); Total Protein 8.0 g/dL (6.3-8.2)
[2024-12-29 12:39] LABS: Percent Iron Saturation 26 % (20-50)
[2024-12-29 13:11] LABS: Ferritin 67.70 ng/mL (11.1-264)
[2024-12-29 13:43] LABS: Vitamin B12 932.0 pg/mL (239-931)
== END 2024-12-29 11:30 | disposition home or self-care (01) ==
LOC: ANHLAB 11:29
PROVIDERS: PCP Internal Medicine Infectious Disease; Visit Provider Internal Medicine Hematology & Oncology
DX: D64.9 Anemia, unspecified (principal)
CPT/HCPCS: 36415; 80053; 82607; 82728; 82746; 83540; 83550; 83921; 84238; 85025